=== PATIENT | male | born 1980 | race Caucasian/White ===

== ENCOUNTER 2022-11-13 06:31 | Emergency (ER) | payer MEDICAID ==
[2022-11-13 06:47] VITALS: BP 141/90; PULSE 76
== END 2022-11-13 07:15 | disposition home or self-care (01) ==
LOC: JP.ED 06:31
DX: S60.222A Contusion of left hand, initial encounter (principal); S00.211A Abrasion of right eyelid and periocular area, initial encounter; Z72.0 Tobacco use; W19.XXXA Unspecified fall, initial encounter
CPT/HCPCS: 73130-26-LT; 73130-LT; 99283